=== PATIENT | female | born 1990 | race Caucasian/White ===

== ENCOUNTER 2017-05-18 12:32 | Emergency (ER) | payer MEDICAID ==
[2016-01-23 13:18] VITALS: BMI 27.4
[~2017-05-18 12:32] MED LIST: FERROUS SULFAT325 MG PO; IBUPROFEN600 MG PO; PERCOCET 5-3251 TAB PO; PRENATAL COMPLE1 TAB PO
[2017-05-18 14:12] LABS: APPEARANCE HAZY (CLEAR); BILIRUBIN NEGATIVE (NEGATIVE); COLOR DK YELLOW (YELLOW); GLUCOSE NEGATIVE (NEGATIVE); KETONE MODERATE mg/dL (NEGATIVE); NITRITE NEGATIVE (NEGATIVE); PROTEIN NEGATIVE (NEGATIVE); UROBILINOGEN NORMAL (NORMAL)
[2017-05-18 14:16] LABS: BACTERIA MODERATE /hpf (NONE SEEN); MUCUS >1+ /lpf (NONE SEEN); RED CELLS - URINE RARE /hpf (0-5); YEAST RARE /hpf (NONE SEEN)
[2017-05-18 14:21] LABS: BASOPHILS 0.1 % (0-2); EOSINOPHILS 0.2 % (0-7); HEMATOCRIT 34.2 % (36.0-48.0); HEMOGLOBIN 11.6 g/dL (12-16); IMMATURE GRANULOCYTES 0.5 % (0-5); LYMPHOCYTES 4.7 % (15-50); MCH 30.4 pg (26.0-34.0); MCHC 33.9 g/dL (31.0-37.0); MCV 89.8 fL (80.0-100.0); MONOCYTES 4.4 % (2-11); NEUTROPHILS 90.1 % (40-80); PLATELET COUNT 227 10x3/uL (130-400); RBC 3.81 10x6/uL (4.00-5.40); RDW 13.8 % (11.5-14.5); WBC 12.3 10x3/uL (4.8-10.8)
[2017-05-18 14:38] LABS: ALBUMIN 2.7 g/dL (3.4-5.0); ALKALINE PHOSPHATASE 69 U/L (46-116); ALT (SGPT) 10 U/L (10-68); AMYLASE - SERUM 46 U/L (25-115); BILIRUBIN - TOTAL 0.94 mg/dL (0.2-1.3); CALC OSMOLALITY 272 mosm/kg (275-300); CALCIUM 8.1 mg/dL (8.5-10.1); CARBON DIOXIDE 22.1 mmol/L (21.0-32.0); CHLORIDE - SERUM 103 mmol/L (98-107); CREATININE - SERUM 0.6 mg/dL (0.6-1.3); GLUCOSE 89 mg/dL (74-106); LIPASE 93 U/L (73-393); POTASSIUM - SERUM 3.4 mmol/L (3.5-5.1); PROTEIN - SERUM 6.9 g/dL (6.4-8.2); SODIUM 137 mmol/L (136-145); UREA NITROGEN 12 mg/dL (7-18); eGFR NON AFRICAN AMERICAN > 90 mL/min (90-120)
[2017-05-18 16:14] LABS: UDS - AMPHET NEGATIVE QUAL (NEGATIVE); UDS - BARB NEGATIVE QUAL (NEGATIVE); UDS - BENZO NEGATIVE QUAL (NEGATIVE); UDS - COCAINE NEGATIVE QUAL (NEGATIVE); UDS - OPIATE NEGATIVE QUAL (NEGATIVE); UDS - PCP NEGATIVE QUAL (NEGATIVE); UDS - THC NEGATIVE QUAL (NEGATIVE)
== END 2017-05-18 17:18 | disposition home or self-care (01) ==
LOC: D.ER 12:32
PROVIDERS: Family Medicine
DX: R11.10 Vomiting, unspecified (principal); R10.9 Unspecified abdominal pain

== ENCOUNTER → 2017-06-08 14:44 | Outpatient (CLI) | payer BC ==
[2016-01-23 13:18] VITALS: BMI 27.4
[~2017-06-08 14:44] MED LIST changes: +HYDROCODON-ACE1 EAC7 PO
== END | disposition home or self-care (01) ==
LOC: D.RAD 14:44
DX: R10.2 Pelvic and perineal pain (principal)

== ENCOUNTER → 2017-07-08 13:45 | Outpatient (CLI) | payer BC ==
[2016-01-23 13:18] VITALS: BMI 27.4
[2017-07-08 14:28] LABS: APPEARANCE HAZY (CLEAR); BILIRUBIN NEGATIVE (NEGATIVE); COLOR YELLOW (YELLOW); GLUCOSE NEGATIVE (NEGATIVE); KETONE NEGATIVE (NEGATIVE); NITRITE NEGATIVE (NEGATIVE); PROTEIN NEGATIVE (NEGATIVE); SPECIFIC GRAVITY 1.015 (1.005-1.020); UROBILINOGEN NORMAL (NORMAL)
[2017-07-08 14:32] LABS: WHITE CELLS - URINE 0-5 /hpf (0-5)
[2017-07-08 14:33] LABS: EPITHELIAL CELLS 0-5 /hpf (0-5)
[2017-07-08 14:34] LABS: BACTERIA MODERATE /hpf (NONE SEEN); RED CELLS - URINE 0-5 /hpf (0-5)
[2017-07-08 14:35] LABS: AMORPHOUS SEDIMENT >1+ /lpf (NONE SEEN)
== END | disposition home or self-care (01) ==
LOC: D.LDO 13:45
PROVIDERS: Obstetrics & Gynecology
DX: O26.893 Other specified pregnancy related conditions, third trimester (principal); Z3A.34 34 weeks gestation of pregnancy

== ENCOUNTER → 2017-07-09 17:18 | Outpatient (CLI) | payer BC ==
[2016-01-23 13:18] VITALS: BMI 27.4
[2017-07-09 17:48] LABS: APPEARANCE CLEAR (CLEAR); BILIRUBIN NEGATIVE (NEGATIVE); COLOR YELLOW (YELLOW); GLUCOSE NEGATIVE (NEGATIVE); KETONE NEGATIVE (NEGATIVE); NITRITE NEGATIVE (NEGATIVE); PROTEIN NEGATIVE (NEGATIVE); UROBILINOGEN NORMAL (NORMAL)
[2017-07-09 17:52] LABS: BACTERIA MODERATE /hpf (NONE SEEN); EPITHELIAL CELLS 0-5 /hpf (0-5); RED CELLS - URINE 0-5 /hpf (0-5)
== END | disposition home or self-care (01) ==
LOC: D.LDO 17:18
PROVIDERS: Obstetrics & Gynecology
DX: O36.8130 Decreased fetal movements, third trimester, not applicable or unspecified (principal); Z3A.35 35 weeks gestation of pregnancy

== ENCOUNTER 2017-07-31 01:14 | Inpatient (IN) | payer BC ==
[~2017-07-31] VITALS: Ht 162.6 cm; Wt 73.5 kg
[~2017-07-31 01:14] MED LIST changes: -HYDROCODON-ACE1 EAC7 PO
[2017-07-31 07:49] VITALS: BP 102/67; Ht 162.6 cm; Wt 73.5 kg
[2017-07-31 09:05] LABS: HEMATOCRIT 34.1 % (36.0-48.0); HEMOGLOBIN 11.3 g/dL (12-16); MCH 29.1 pg (26.0-34.0); MCHC 33.1 g/dL (31.0-37.0); MCV 87.9 fL (80.0-100.0); MEAN PLATELET VOLUME 10.3 fL (7.4-10.4); RBC 3.88 10x6/uL (4.00-5.40); RDW 14.8 % (11.5-14.5); WBC 8.5 10x3/uL (4.8-10.8)
[2017-07-31 23:04] VITALS: BP 101/56
[2017-08-01 04:09] VITALS: BP 112/72
[2017-08-01 07:05] LABS: BASOPHILS 0.1 % (0-2); EOSINOPHILS 0.9 % (0-7); HEMATOCRIT 32.3 % (36.0-48.0); HEMOGLOBIN 10.9 g/dL (12-16); IMMATURE GRANULOCYTES 0.2 % (0-5); LYMPHOCYTES 23.6 % (15-50); MCH 29.7 pg (26.0-34.0); MCHC 33.7 g/dL (31.0-37.0); MEAN PLATELET VOLUME 10.2 fL (7.4-10.4); MONOCYTES 7.1 % (2-11); NEUTROPHILS 68.1 % (40-80); PLATELET COUNT 236 10x3/uL (130-400); RBC 3.67 10x6/uL (4.00-5.40); RDW 14.9 % (11.5-14.5)
[2017-08-01 07:06] LABS: WBC 11.1 10x3/uL (4.8-10.8)
[2017-08-01 08:06] VITALS: BP 119/80
[2017-08-01 16:00] VITALS: BP 107/73
[2017-08-01 19:42] VITALS: BP 114/74
[2017-08-02] MEDS ORDERED: HYDROCODON-ACE1 EAC7 PO (07:26)
[2017-08-02] MEDS ORDERED: IBUPROFEN600 MG PO (07:27)
[2017-08-02 07:45] VITALS: BP 115/78
[2017-08-03 08:21] LABS: RAPID PLASMA REAGIN Non Reactive (Non Reactive)
== END 2017-08-02 11:15 | disposition home or self-care (01) | DRG 775 ==
LOC: D.LD 01:14
PROVIDERS: Obstetrics & Gynecology
PROC: 10907ZC Drainage of Amniotic Fluid, Therapeutic from Products of Conception, Via Natural or Artificial Opening (ICD-10-PCS; principal; 2017-07-31)
PROC: 10E0XZZ Delivery of Products of Conception, External Approach (ICD-10-PCS; 2017-07-31)
PROC: 0KQM0ZZ Repair Perineum Muscle, Open Approach (ICD-10-PCS; 2017-07-31)
PROC: 3E033VJ Introduction of Other Hormone into Peripheral Vein, Percutaneous Approach (ICD-10-PCS; 2017-07-31)
DX: O76 Abnormality in fetal heart rate and rhythm complicating labor and delivery (principal); Z3A.39 39 weeks gestation of pregnancy; Z37.0 Single live birth

== ENCOUNTER 2017-09-16 06:10 | Day surgery (SDC) | payer BC ==
[2017-09-15 16:00] LABS: BASOPHILS 0.2 % (0-2); EOSINOPHILS 3.1 % (0-7); HEMATOCRIT 36.7 % (36.0-48.0); HEMOGLOBIN 12.3 g/dL (12-16); LYMPHOCYTES 42.3 % (15-50); MCH 28.9 pg (26.0-34.0); MCHC 33.5 g/dL (31.0-37.0); MCV 86.2 fL (80.0-100.0); MEAN PLATELET VOLUME 9.5 fL (7.4-10.4); NEUTROPHILS 46.4 % (40-80); PLATELET COUNT 238 10x3/uL (130-400); RBC 4.26 10x6/uL (4.00-5.40); RDW 13.4 % (11.5-14.5); WBC 5.7 10x3/uL (4.8-10.8)
--- NOTE | ~2017-09-16 | OP ---
PATIENT NAME: JOSE SALEEM MEDICAL RECORD: [id number] :92 LOCATION:[facility] ADMISSION DATE: SURGEON: OK BANEGAS MD DATE OF OPERATION: 09/16/2017 PREOPERATIVE DIAGNOSES: Multiparity, the patient desires permanent sterility. POSTOPERATIVE DIAGNOSES: Multiparity, the patient desires permanent sterility. PROCEDURE: Laparoscopic tubal ligation via bipolar cautery. SURGEON: Ok Banegas MD ESTIMATED BLOOD LOSS: Minimal. INTRAVENOUS FLUIDS: Per anesthesia records. SPECIMENS: None. FINDINGS: Grossly normal-appearing fallopian tubes and ovaries. ESTIMATED BLOOD LOSS: Minimal. COMPLICATIONS: None apparent. PROCEDURE: The patient was taken to the operating room where general anesthesia was achieved without difficulty. The patient was prepped and draped in normal sterile fashion in the dorsal lithotomy position in the [facility]. At this point, the patient was prepped and draped and bladder drained of approximately 50-100 cc of clear yellow urine. A sponge stick was then placed in the vagina for uterine elevation. Attention was then turned to the umbilicus where a 5-mm incision was made in the inferior aspect of the umbilicus. The 5-mm bladeless trocar was then used to enter the intraperitoneal space under direct visualization under laparoscope. An introducer was then removed and intraperitoneal placement was confirmed. Opening pressure was found to be less than 8 mmHg. The patient was then insufflated and a second port was placed in the midline approximately 5 cm superior to the pubic symphysis under direct visualization of the laparoscope. The tubes were identified to their fimbriated ends. Bipolar cautery was then used to fully desiccate a 5-6 cm portion of the mid tube with good hemostasis noted bilaterally. The survey of the abdomen and pelvis was performed and no pathology was identified. The patient was then desufflated and the skin repaired with 3-0 Monocryl in an interrupted fashion. Sponge stick was removed from vagina. The patient tolerated procedure well, transferred to postanesthesia recovery stable without incident. TRANSINT:[id number] Voice Confirmation ID: [id number] DOCUMENT ID: [id number] OPERATIVE REPORT [id number] JOSE SALEEM OK BANEGAS MD at 9653 CC: [id number] DICTATION DATE: 09/24/172104 YOGA INSTRUCTOR: 09/24/17 2224 [facility] 09/16/17 [facility] [address] [place] [address]
[~2017-09-16 06:10] MED LIST changes: +HYDROCODON-ACE1 EAC7 PO
[2017-09-16 06:58] VITALS: BP 122/85; BMI 24.2
[2017-09-16 07:20] LABS: HCG URINE NEGATIVE (NEGATIVE)
== END 2017-09-16 12:30 | disposition home or self-care (01) ==
LOC: D.OPS 06:10 → D.PAN 08:30 → D.OPS 08:30
PROVIDERS: Anesthesiology; Obstetrics & Gynecology
DX: Z30.2 Encounter for sterilization (principal); Z01.812 Encounter for preprocedural laboratory examination

== ENCOUNTER 2018-05-17 08:26 | Emergency (ER) | payer OTHER ==
[~2018-05-17] VITALS: Ht 162.6 cm; Wt 64.5 kg
[2018-05-17 08:30] VITALS: Ht 162.6 cm; Wt 64.5 kg
[2018-05-17] MEDS ORDERED: KEFLEX500 MG PO (09:38)
[2018-05-17] MEDS ORDERED: HYDROCODON-ACE1 EAC7 PO (09:38)
[2018-05-17 10:15] VITALS: BP 110/57
== END 2018-05-17 10:15 | disposition home or self-care (01) ==
LOC: D.ER 08:26
DX: J02.0 Streptococcal pharyngitis (principal); R50.9 Fever, unspecified; R51 Headache

== ENCOUNTER 2020-06-18 05:35 | Day surgery (SDC) | payer OTHER ==
[2020-06-17 11:55] LABS: BASOPHILS 0.2 % (0-2); EOSINOPHILS 4.7 % (0-7); HEMATOCRIT 39.4 % (36.0-48.0); HEMOGLOBIN 13.3 g/dL (12-16); IMMATURE GRANULOCYTES 0.2 % (0-5); LYMPHOCYTE ABS# 1.74 10x3/uL (1.18-3.74); LYMPHOCYTES 30.1 % (15-50); MCH 30.1 pg (26.0-34.0); MCHC 33.8 g/dL (31.0-37.0); MCV 89.1 fL (80.0-100.0); MEAN PLATELET VOLUME 9.1 fL (7.4-10.4); MONOCYTES 6.9 % (2-11); NEUTROPHIL ABS# 3.36 10x3/uL (1.56-6.13); NEUTROPHILS 57.9 % (40-80); RBC 4.42 10x6/uL (4.00-5.40); RDW 12.5 % (11.5-14.5); WBC 5.8 10x3/uL (4.8-10.8)
[2020-06-17 12:10] LABS: PLATELET COUNT 321 10x3/uL (130-400)
[~2020-06-18] VITALS: Ht 162.6 cm; Wt 73.9 kg
[~2020-06-18 05:35] MED LIST changes: +KEFLEX500 MG PO
[2020-06-18 06:01] VITALS: BP 113/82; Ht 162.6 cm; Wt 73.9 kg
[2020-06-18 06:15] LABS: HCG URINE NEGATIVE (NEGATIVE)
--- NOTE | 2020-06-18 07:54 | NUR ---
MOOASURE SETTINGS/TIME:
--- NOTE | 2020-06-18 10:28 | NUR ---
1025 [place]ILLE PAD AND DISPOSABLE UNDERWEAR PROVIDED FOR PT. PT. IS TEXTING HER RIDE AND GIVING HER AN APPROXIMATE TIME OF DISCHARGE.
--- NOTE | 2020-06-18 11:16 | NUR ---
1115 PT STILL REPORTS NAUSEA, WITHOUT EMESIS. COOL CLOTHS PROVIDED, PT. SITTING UP IN BED.
--- NOTE | 2020-07-01 16:11 | OP ---
PATIENT NAME: JOSE SALEEM MEDICAL RECORD: [id number] :92 LOCATION:[facility] ADMISSION DATE: SURGEON: JOE BANEGAS MD DATE OF OPERATION: 06/18/2020 PREOPERATIVE DIAGNOSES: 1. A 5-cm right ovarian cyst. 2. Pelvic pain. POSTOPERATIVE DIAGNOSES: 1. A 5-cm right ovarian cyst. 2. Pelvic pain. PROCEDURE: Laparoscopic ovarian cystectomy. SURGEON: Joe Banegas MD ANESTHESIA: General endotracheal. INTRAVENOUS FLUIDS: Per anesthesia record. URINE OUTPUT: Approximately 150 cc intraoperatively. SPECIMENS: Include ovarian cyst wall. FINDINGS: 1. A 5 cm right ovarian cyst. 2. Grossly normal-appearing uterus. 3. Grossly normal appearing fallopian tubes. 4. Grossly appearing left ovary. COMPLICATIONS: None apparent. DESCRIPTION OF PROCEDURE: The patient was taken to the operating room where general anesthesia was achieved without difficulty. The patient was then prepped and draped in normal sterile fashion in the dorsal lithotomy position. A Mathis catheter was placed and a single tooth tenaculum was placed on the anterior lip of the cervix without difficulty. An acorn uterine manipulator was then placed approximately 2 cm into the cervical os and attached to the tenaculum. At this point, the patient was prepped and draped and a 5-mm skin incision was made infraumbilically. Of note, a Mathis catheter had been placed. The 5 mm bladeless trocar was used to enter the intraperitoneal space under direct visualization of the laparoscope. The patient was insufflated and opening pressure was found to be less than 10 mmHg. The patient insufflated normally with tympany noted over the liver. The introducer was removed and laparoscopic placement was confirmed by the laparoscope. At this time, a second port was placed by making another 5-mm incision in the left lower quadrant and in the inferior midline. A second 5-mm bladeless trocar was used to enter the intraperitoneal space in the midline and left lower quadrant under direct visualization of the laparoscope. Survey of the abdomen and pelvis was performed. The right ovarian cyst was then penetrated with the Harmonic and of the Thunderbeat cautery instrument and aspirated using an drain layer aspirator. The cyst wall was then tented upward and the bipolar hook was used to excise a large circumferential portion of the ovarian cyst. Following removal of the cyst, cyst wall was sent for pathology. All surgical sites were noted for OPERATIVE REPORT [id number] JOSE SALEEM bleeding under decreased pressure. The patient was then desufflated and the trocar sites were repaired with a 3-0 Vicryl. The uterine manipulator and tenaculum were removed from the vagina. The patient tolerated the procedure well and was transferred to postanesthesia recovery stable without incident. TRANSINT:[id number] Voice Confirmation ID: [id number] DOCUMENT ID: [id number] JOE BANEGAS MD at 1611 CC: [id number] DICTATION DATE: 06/30/20 1245 BOTTLE SELECTOR: 06/30/20 1639 [facility] 06/18/20 [facility] [address] [place] [address]
== END 2020-06-18 11:50 | disposition home or self-care (01) ==
LOC: D.OPS 05:35
PROVIDERS: ATTEND Obstetrics & Gynecology
DX: R10.2 Pelvic and perineal pain (principal); N83.201 Unspecified ovarian cyst, right side